=== PATIENT | male | born 1945 | race Caucasian/White ===

== ENCOUNTER → 2017-11-03 | Outpatient (CLI) | payer OTHER, BC ==
[~2017-11-03] VITALS: Ht 190.5 cm; Wt 114.0 kg
[~2017-11-03] MED LIST: ANAPROX DS550 MG PO; ASPIRIN; ASPIRIN81 M2 PO; BENICAR20 MG PO; BENTYL20 MG PO; CARDIZEM CD 18180 M3 PO; CIPRO500 MG PO; CIPROFLOXACIN500 M1 PO; DARVOCET-N 1001 EACH PO; DIGOXIN125 MCG PO; FISH OIL 1,001000 M1 PO; FLAX SEED OIL1000 MG PO; FOLIC ACID 40400 MC1 PO; IBUPROFEN 400400 M2 PO; IRON159 MG PO; KEFLEX500 MG PO; LIPITOR 10 MG10 M1 PO; LOPRESSOR 12.12.5 MG PO; LOPRESSOR25 PO; MECLIZINE HCL25 MG PO; METOPROLOL PO; NEXIUM40 MG PO; NORFLEX100 MG PO; NORVASC2.5 MG PO; NORVASC5 MG PO; OMEGA-31000 M1 PO; PAXIL20 MG PO; PLAVIX 75 MG TA75 MG PO; TOPROL XL25 MG PO; TRAMADOL 50 MG50 MG PO; VITAMIN B-12250 MCG PO; VITAMIN D3400 UNIT PO; ZOCOR 10 MG TAB10 MG PO; ZOCOR 20 MG TAB20 M1 PO
--- NOTE | ~2017-11-03 | P ---
[facility] [place] [address] PROCEDURE REPORT Name: NALINI TANNER [id number] Admission: 11/03/17 Attend Phys: Miguelito Atwood MD Discharge: Date of : 41 Report #: [id number] THIS REPORT FOR: //name// CC: Hal Santana PREOPERATIVE DIAGNOSIS: Supraventricular tachycardia. POSTOPERATIVE DIAGNOSIS: Typical atrioventricular anila reentrant tachycardia. HISTORY: The patient is a 72-year-old with history of SVT here for an ablation. PROCEDURES PERFORMED: 1. SVT ablation, CPT code 78838. 2. EP left atrial pacing and recording, CPT code 59691. 3. Program stimulation and pacing after IV, CPT code 23280. 4. 3D mapping EP, CPT code 21682. ANESTHESIA: The patient underwent MAC anesthesia with no anesthesia related complications. DESCRIPTION OF PROCEDURE: The patient underwent informed consent. We discussed the details of the procedure including the risks, which include but not limited to bleeding, vascular damage, cardiac perforation as well as damage to the [place] conduction system requiring a permanent pacemaker. As such, the patient was brought to the EP laboratory in a fasting and sedated state and prepped and draped in a sterile fashion. I obtained access to the bilateral femoral veins placing an 8 and 6-Cymraes short sheath in the right femoral vein and a 6 and 7-Cymraes short sheath in the left femoral vein. Under fluoroscopy, I placed 3 quadripolar catheters at the HRA, His, and RV positions and a decapolar catheter in the coronary sinus. At baseline, the patient was in sinus rhythm with a sinus cycle length of 845 milliseconds, NE interval 170 milliseconds, QRS duration 150 milliseconds, QT interval 420 milliseconds, AH interval 70 milliseconds, and HV interval 42 milliseconds. Atrial pacing was performed from the right atrium and the left atrium via the coronary sinus catheter. AV block was noted at 460 milliseconds. AV anila ERP was noted at 370 milliseconds with a 500-millisecond basic drive cycle length. Ventricular pacing was performed and VA block was noted to be greater than 700 milliseconds. Next, an isoproterenol infusion was initiated and AV block was noted at 320 milliseconds. There were some short bursts of SVT. Ventricular pacing was performed and VA block was noted to be less than 270 milliseconds and VA ERP was noted at 280 milliseconds at a 480-millisecond basic drive cycle length. VA conduction was both midline and decremental. Isoproterenol was then increased to 2 mcg per minute and with atrial burst pacing, the patient went into SVT with a tachycardia cycle length of 325 milliseconds, septal VA time of 30 [facility] [address] [place] [address] PROCEDURE REPORT Name: NALINI TANNER Room #: REG [facility].#: [id number] Admission: 11/03/17 Attend Phys: Miguelito Atwood MD Discharge: Date of : 41 Report #: [id number] milliseconds and ventricular entrainment demonstrated a VAHV response consistent with typical AV anila reentrant tachycardia. SVT could easily be induced now with atrial burst pacing or double atrial extrastimuli. 3D MAPPING AND ABLATION: An SR0 sheath and a 4-mm Biosense Saeed ablation catheter was placed into the right atrium. A detailed 3D geometry was created with specific emphasis of the slow pathway and the His region. Ablation was performed at 50 drew and 55 degrees. A total of 6 ablation lesions were performed. POST-ABLATION TESTING: Post-ablation testing was performed and AV block was noted at 460 milliseconds. AV anila ERP was noted at 360 milliseconds at a 500-millisecond basic drive cycle length. Isoproterenol was increased to 2 mcg per minute and AV block was noted at 300 milliseconds. AV anila ERP was noted at 220 milliseconds at a 400-millisecond basic drive cycle length. With double atrial extrastimuli, there is no SVT. There was rare single AV anila echoes. Isoproterenol was turned off and AV block was noted at 330 milliseconds. AV anila ERP was noted at 260 milliseconds at a 400-millisecond basic drive cycle length. We tested for a period of 30-40 minutes and we could no longer induce SVT. Post-ablation, the patient was in sinus rhythm with sinus cycle length of 545 milliseconds, NE interval 165 milliseconds, QRS duration 110 milliseconds, QT interval 370 milliseconds, AH interval of 80 milliseconds and HV interval 42 milliseconds. As such, all catheters and sheaths were pulled. Hemostasis obtained and the patient awoke neurologically and hemodynamically intact with no complications and no significant bleeding. CONCLUSIONS: 1. Successful ablation of typical AV anila reentrant tachycardia. 2. Normal SA anila function. 3. Normal AV node function. 4. Normal His-Purkinje function. 5. No other inducible arrhythmias on or off isoproterenol. By: 1120 19 Miguelito Atwood MD /nt
[2017-11-03 07:21] VITALS: BP 144/69
[2017-11-03 07:39] LABS: HEMATOCRIT 46.6 % (42.0-52.0); HEMOGLOBIN 15.9 gm/dL (14.0-18.0); MCH 30.8 pg (26.0-34.0); MCV 90.5 fL (80.0-100.0); RBC 5.15 mil/uL (4.50-6.00); RDW 14.1 % (10.5-14.5); WBC 6.6 thou/uL (4.0-11.0)
[2017-11-03 07:45] LABS: APTT 28.3 Seconds (24.5-32.8); PROTIME 10.2 Seconds (9.3-11.4)
[2017-11-03 07:49] LABS: CALCIUM 9.4 mg/dL (8.5-10.1); CREATININE 1.4 mg/dL (0.7-1.3); POTASSIUM 4.1 mmol/L (3.5-5.1)
== END | disposition home or self-care (01) ==
LOC: CATH 06:53
PROVIDERS: Internal Medicine Cardiovascular Disease
DX: I47.1 Supraventricular tachycardia (principal); G47.30 Sleep apnea, unspecified; M19.90 Unspecified osteoarthritis, unspecified site; I25.10 Atherosclerotic heart disease of native coronary artery without angina pectoris; I10 Essential (primary) hypertension; E78.5 Hyperlipidemia, unspecified; Z79.82 Long term (current) use of aspirin; Z79.899 Other long term (current) drug therapy; Z90.89 Acquired absence of other organs; Z98.890 Other specified postprocedural states; Z95.1 Presence of aortocoronary bypass graft; Z95.5 Presence of coronary angioplasty implant and graft; Z82.49 Family history of ischemic heart disease and other diseases of the circulatory system; Z79.01 Long term (current) use of anticoagulants
CPT/HCPCS: 62110; 62900; 70005